=== PATIENT | female | born 1980 | race Caucasian/White ===

== ENCOUNTER 2016-12-01 20:39 | Outpatient (CLI) | payer MEDICAID ==
[~2016-12-01] VITALS: Ht 170.2 cm; Wt 75.8 kg
[~2016-12-01 20:39] MED LIST: HYDR-3498 PO; PRENAT PO
[2016-12-01] MEDS ORDERED: CALC600T5 PO (20:55)
[2016-12-01] MEDS ORDERED: FERR325C PO (20:55)
[2016-12-01] MEDS ORDERED: FOLI0.8C PO (20:55)
[2016-12-01] MEDS ORDERED: PREN1TAB79 PO (20:55)
[2016-12-01 20:56] VITALS: Ht 170.2 cm; Wt 75.8 kg
[2016-12-01 20:57] VITALS: BP 135/77; PULSE 92; RESP 18
--- NOTE | 2016-12-01 23:44 | HP ---
Date/Time of Note Date/Time of Note DATE: 12/01/16 TIME: 23:42 OB - History Hx of Present Free Text/Dictation OB Triage Pt is a 36yo at 38+0 presenting with increasingly painful UCs since 1830. Pt reports normal FM, denies LOF or VB. Pt reports hx of twin gestation with gutierrez gestation diagnosed around 12wks GA. also reportedly complicated by vaginal bleeding up until 4mths with low placenta. Uncomplicated previous , 19 and 12 years ago. PROCEDURE: OB PLACENTAL ULTRASOUND CLINICAL INDICATION: Pre-term labor. TECHNIQUE: Trans-vaginal imaging of the placenta was performed utilizing urena- scale imaging. Sagittal and transverse images were obtained. Trans-abdominal images were also obtained. The images were reviewed on a PACS workstation. COMPARISON: 08/27/2016. 06/12/2016. FINDINGS: There is a single live intrauterine . heart rate is 134 beats per minute. Position is cephalic and placenta is left lateral, grade 2. There is no evidence of placenta previa or abruption. IMPRESSION: 1. Placenta is left lateral, grade 2. No evidence of placenta previa or abruption. Estimated Due Date: Dec 15, 2016 : 5 Para: 2 Care: Good Care Past Family/Social History * Past Medical, Surgical, Family and Obstetric Histories reviewed with patient. chart not available. Blood Type: Unknown Rubella: unknown RPR/VDRL: Unknown GBS Status: Unknown HBsAG: Unknown OB Admission Exam Vital Signs Vital Signs Vital Signs Date Time Temp Pulse Resp B/P Pulse Ox O2 Delivery O2 Flow Rate FiO2 12/01/16 20:57 98.1 92 18 135/77 Room Air Physical Exam HEENT: WNL Heart: Rhythm Normal Lungs: Clear Abdomen: WNL Extremities: Normal Cervical Dilatation: 2cm Effacement: Other (60%) Station: -2 Membranes: Intact Heart Rate: 140's Accelerations: Accelerations Present Decelerations: No Decelerations Varibility: Moderate Contractions on Admission: 6-10 Minutes Apart OB Assessment/Plan Other Assessment: Early term in latent labor Other plan: Pt with unchanged cervical exam over serial exams. Reactive NST. Pt appropriate for d/c home with outpatient f/up or return for worsening UCs, LOF, decreased FM or other concerns. Plan d/w pt. Questions answered to her satisfaction. MILLIE GEORGE MD Dec 01, 2016 23:44
--- NOTE | 2016-12-01 23:44 | RADRPT ---
PROCEDURE: OB PLACENTAL ULTRASOUND CLINICAL INDICATION: Pre-term labor. TECHNIQUE: Trans-vaginal imaging of the placenta was performed utilizing urena-scale imaging. Sagi ttal and transverse images were obtained. Trans-abdominal images were also obtained. The images we re reviewed on a PACS workstation. COMPARISON: 08/27/2016. 06/12/2016. FINDINGS: There is a single live intrauterine . heart rate is 134 beats per minute. Position is cephalic and placenta is left lateral, grade 2. There is no evidence of placenta previa or abrupt ion. IMPRESSION: 1. Placenta is left lateral, grade 2. No evidence of placenta previa or abruption. RPTAT: HFN .Sabra Hickman MD, Date Time Electronically viewed and signed by .Sabra Hickman MD, MD on 12/01/2016 23:44 .N/
--- NOTE | 2016-12-02 06:52 | TRIAGE ---
OB Triage Datetime Report Generated by CPN: 12/02/2016 06:51 Datetime: 12/02/2016 01:58 Stage of : OB Triage Labor Evaluation Frequency: 2-6.5 Monitor Mode: External Duration (sec)2399: 60-120 Quality: Mild Pattern: Normal: <= 5 Contractions in 10 Minutes Resting Tone [place]: Relaxed Heart Rate FHR Baseline Rate: 130 Monitor Mode: External US FHR Baseline Changes: No Baseline Change Variability: Moderate 6-25 bpm Accelerations: 15X15 Decelerations: None Category: Category I Datetime: 12/02/2016 00:31 Stage of : OB Triage Labor Evaluation Frequency: 1.5-6 Monitor Mode: External Duration (sec)2399: 40-110 Quality: Mild Pattern: Normal: <= 5 Contractions in 10 Minutes Resting Tone [place]: Relaxed Heart Rate FHR Baseline Rate: 130 Monitor Mode: External US FHR Baseline Changes: No Baseline Change Variability: Moderate 6-25 bpm Accelerations: 15X15 Decelerations: None Category: Category I Datetime: 12/02/2016 00:00 Stage of : OB Triage Labor Evaluation Frequency: 2-5.5 Monitor Mode: External Duration (sec)2399: 40-140 Quality: Mild Pattern: Normal: <= 5 Contractions in 10 Minutes Resting Tone [place]: Relaxed Heart Rate FHR Baseline Rate: 130 Monitor Mode: External US Variability: Moderate 6-25 bpm Accelerations: 15X15 Decelerations: None Category: Category I Datetime: 12/01/2016 23:20 Stage of : OB Triage Datetime: 12/01/2016 23:18 Vaginal Exam Dilatation (cms): 2.5 Effacement (%): 60 Station: -2 Exam By: MORGAN Galo Vaginal Bleeding: Scant Cervix, Consistency: Moderate Cervix, Position: Posterior Datetime: 12/01/2016 21:30 Stage of : OB Triage Labor Evaluation Frequency: 1.5-7.5 Monitor Mode: External Duration (sec)2399: 40-110 Quality: Mild Pattern: Normal: <= 5 Contractions in 10 Minutes Resting Tone [place]: Relaxed Heart Rate FHR Baseline Rate: 145 Monitor Mode: External US Variability: Moderate 6-25 bpm Accelerations: 15X15 Decelerations: None Category: Category I Datetime: 12/01/2016 21:24 Stage of : OB Triage Datetime: 12/01/2016 21:18 Vaginal Exam Dilatation (cms): 2.0 Effacement (%): 60 Station: -2 Exam By: MORGAN Galo Membrane Status: Intact Vaginal Bleeding: None Cervix, Consistency: Moderate Cervix, Position: Posterior Datetime: 12/01/2016 20:51 EGA: 38.0 Datetime: 12/01/2016 20:47 Stage of : OB Triage Assessment Type: Triage Maternal Assessment Level of Consciousness: Fully Conscious DTR's/Clonus: DTRs 2+; No Clonus Headache: Denies Blurred Vision: No Respiratory Effort: Unlabored; Regular Rhythm; Equal Expansion Breath Sounds, Left: Clear and Equal Breath Sounds, Right: Clear and Equal Nausea/Vomiting: Denies RUQ Epigastric Pain: Denies Lower Extremities Edema: None Degree: None Upper Extremities Edema: None Degree: None Facial Edema: None Temperature Route: Oral Fall Risk Assessment History of Falling: (0) No Secondary Diagnosis: (0) No Ambulatory Aid: (0) Bedrest/Nurse Assist IV Therapy: (0) No Gait: (0) Normal/Bedrest/Immobile Mental Status: (0) Oriented to Own Ability Fall Score: 0 Fall Risk Score Definition: No Risk: No action required Pain Assessment Pain Scale: 7 Pain Presence: Intermittent Pain Type: Cramping; Contraction Pain Location: Abdomen; Back Pain Relief Measures: Comfort Measures Datetime: 12/01/2016 20:46 Monitor Mode: External Contraction Comments: [place] applied Heart Rate FHR Baseline Rate: 145 Monitor Mode: External US Comments: EFN applied Datetime: 12/01/2016 20:40 Time of Arrival: 12/01/2016 20:33 Arrived By: Ambulatory Arrived From: Home Chief Complaint: UCs Movement: Present Contractions: Regular Time Contractions Began: 12/01/2016 18:30 Contractions: q6mins Rupture of Membranes: Denies Vaginal Bleeding: None Vaginal Discharge: Present Abdominal Trauma: Not Applicable Patient Complaints: Contractions; Cramping; Back Pain Time Provider Notified: 12/01/2016 21:24 Provider Notified: Isaac Initial Plan: SHARMIN ronquillo
== END 2016-12-02 02:08 | disposition home or self-care (01) ==
LOC: L-D 20:39 → OBT 20:39
PROVIDERS: ATTEND Obstetrics & Gynecology
DX: O60.03 Preterm labor without delivery, third trimester (principal); O09.523 Supervision of elderly multigravida, third trimester; Z3A.38 38 weeks gestation of pregnancy
CPT/HCPCS: 76815; Z7500; G0463

== ENCOUNTER 2016-12-09 10:22 | Inpatient (IN) | payer MEDICAID ==
[~2016-12-09] VITALS: Ht 165.1 cm; Wt 73.6 kg
[~2016-12-09 10:22] MED LIST changes: +CALC600T5 PO; +FERR325C PO; +FOLI0.8C PO; -HYDR-3498 PO; +PREN1TAB79 PO; -PRENAT PO
[2016-12-09] MEDS ORDERED: LACTATED RINGER'S 1,000 ML IV SCH (10:26)
[2016-12-09] MEDS ORDERED: LIDOCAINE 1% (MPF) 30 ML INJ INJ PRN (10:30)
[2016-12-09] MEDS ORDERED: LACTATED RINGER'S 1,000 ML IV PRN (10:30)
[2016-12-09] MEDS ORDERED: OXYTOCIN 30 UNITS/LR 500 ML IV SCH ×2 (10:30)
[2016-12-09] MEDS ORDERED: MISOPROSTOL 200 MCG TAB PR PRN (10:30)
[2016-12-09] MEDS ORDERED: BUTORPHANOL 2 MG INJ IV PRN (10:30)
[2016-12-09] MEDS ORDERED: OXYTOCIN 30 UNITS/LR 500 ML IV PRN (10:30)
[2016-12-09] MEDS ORDERED: IBUPROFEN 600 MG TAB PO PRN (10:30)
[2016-12-09] MEDS ORDERED: METHYLERGONOVINE 0.2 MG INJ IM PRN (10:30)
[2016-12-09] MEDS ORDERED: CARBOPROST 250 MCG INJ IM PRN (10:30)
--- NOTE | 2016-12-09 11:01 | LDN ---
Date/Time of Note Date/Time of Note DATE: 12/09/16 TIME: 10:58 Delivery Summary Normal spontaneous vaginal delivery of a baby girl from [place] position shoulders delivered with no difficulties cord clamped after stopped pulsation, placenta spontaneous expulsion inspected complete blood loss 200 cc no laceration. Weeks of Gestation 39 weeks 4 days Placenta Delivered: Spontaneously Meconium: none Episiotomy: No Laceration repair: None Anesthesia type: None Estimated blood loss: 200 Sponge & Needle done & correct: Yes All needle counts correct: Yes Any foreign bodies felt in the: No Problems: Infant Delivery Information Sex Sex: female Apgars 1 Minute: 9 5 Minute: 9 Suctioning Nose & mouth suctioned at fani: Yes Delee suction performed: No Umbilical Cord Umbilical cord with: 3 Vessels Cord presentations: nuchal cord Cord Blood was obtained: Yes HARVEY HINDS MD Dec 09, 2016 11:01
--- NOTE | 2016-12-09 11:06 | HP ---
Date/Time of Note Date/Time of Note DATE: 12/09/16 TIME: 11:01 OB - History Hx of Present Free Text/Dictation 36 years old female admitted to [facility] at 39 weeks and 1 day gestation in active labor admitting pelvic examination cervical dilatation anterior ring 100% effacement vertex at +2 station patient seventh directly to the delivery room for the delivery Estimated Due Date: Dec 16, 2016 : 5 Para: 2 Spontaneous : 2 Care: Good Care Ultrasounds: Normal mid trimester US Obstetrical Complications: None Medical Complications: None Past Family/Social History * Past Medical, Surgical, Family and Obstetric Histories reviewed from chart. Rubella: immune RPR/VDRL: Negative GBS Status: Negative HBsAG: Negative OB Admission Exam Physical Exam HEENT: WNL Heart: Rhythm Normal Lungs: Clear, Equal Abdomen: WNL Extremities: Normal Reflexes: Normal Cervical Dilatation: 10cm Station: +2 Membranes: Ruptured Amniotic Fluid: Clear Accelerations: Accelerations Present Decelerations: No Decelerations Varibility: Marked Contractions on Admission: < 5 Minutes Apart Intensity: Firm HARVEY HINDS MD Dec 09, 2016 11:06
[2016-12-09 11:08] LABS: ADD SCAN DIFF NO
[2016-12-09 11:12] LABS: BASOPHILS % 0.3 % (0.0-2.0); EOSINOPHILS # 0.1 10^3/ul (0.0-0.5); EOSINOPHILS % 0.7 % (0.0-7.0); HEMATOCRIT 44.5 % (37.0-47.0); HEMOGLOBIN 15.5 g/dl (12.0-16.0); LYMPHOCYTES # 2.1 10^3/ul (0.8-2.9); MEAN CORPUSCULAR HEMOGLOBIN 31.8 pg (29.0-33.0); MEAN CORPUSCULAR HGB CONC 34.8 g/dl (32.0-37.0); MEAN CORPUSCULAR VOLUME 91.4 fl (82.0-101.0); MEAN PLATELET VOLUME 13.5 fl (7.4-10.4); MONOCYTE # 0.9 10^3/ul (0.3-0.9); MONOCYTES % 8.5 % (0.0-11.0); NEUTROPHIL # 7.4 10^3/ul (1.6-7.5); NEUTROPHILS % 69.4 % (39.0-77.0); PLATELET COUNT 140 10^3/UL (140-415); RED BLOOD COUNT 4.87 10^6/ul (4.20-5.40); WHITE BLOOD COUNT 10.7 10^3/ul (4.8-10.8)
--- NOTE | 2016-12-09 11:28 | TRIAGE ---
OB Triage Datetime Report Generated by CPN: 12/09/2016 11:28 Datetime: 12/09/2016 10:29 Stage of : Labor Maternal Assessment Level of Consciousness: Fully Conscious DTR's/Clonus: DTRs 2+; No Clonus Headache: Denies Blurred Vision: No Respiratory Effort: Unlabored Breath Sounds, Left: Clear and Equal Breath Sounds, Right: Clear and Equal Nausea/Vomiting: Denies RUQ Epigastric Pain: Denies Facial Edema: None Labor Evaluation Frequency: 1-2 Monitor Mode: External Duration (sec)2399: 50-60 Quality: Mild Pattern: Normal: <= 5 Contractions in 10 Minutes Resting Tone [place]: Relaxed Heart Rate FHR Baseline Rate: 130 Monitor Mode: External US FHR Baseline Changes: No Baseline Change Variability: Moderate 6-25 bpm Accelerations: 15X15 Decelerations: None Category: Category I Pain Assessment Pain Scale: 10 Pain Presence: Intermittent Pain Type: Contraction Pain Location: Abdomen Pain Goal: 10 Pain Relief Measures: Comfort Measures Vaginal Exam Dilatation (cms): 9.0 Effacement (%): 100 Station: 0 Exam By: GRACIE MORA Membrane Status: Intact Vaginal Bleeding: None Cervix, Consistency: Soft Cervix, Position: Anterior Presentation 'A': Cephalic Datetime: 12/09/2016 10:13 Time of Arrival: 12/09/2016 10:13 EGA: 39.1 Arrived By: Ambulance Arrived From: Home Chief Complaint: R/O LABOR Movement: Present Contractions: Denies/Absent Time Contractions Began: 12/09/2016 08:00 Rupture of Membranes: Denies Vaginal Bleeding: None Vaginal Discharge: Denies Recent Sexual Intercouse: Denies Abdominal Trauma: Not Applicable Patient Complaints: Contractions Time Provider Notified: 12/09/2016 10:15 Provider Notified: LIZET Datetime: 12/02/2016 01:55 Stage of : OB Triage Datetime: 12/02/2016 01:49 Vaginal Exam Dilatation (cms): 2.5 Effacement (%): 60 Station: -2 Exam By: MORGAN Galo Membrane Status: Intact Vaginal Bleeding: Scant Cervix, Consistency: Moderate Cervix, Position: Posterior Presentation 'A': Cephalic Datetime: 12/01/2016 20:51 EGA: 38.0 Membranes Ruptured Date/Time: 12/09/2016 09:10 Membranes Rupture Method: Spontaneous Amniotic Fluid Color: Clear Amniotic Fluid Amount: Moderate Amniotic Fluid Odor: None Datetime: 12/01/2016 20:47 Fall Risk Assessment Fall Score: 0 Fall Risk Score Definition: No Risk: No action required Datetime: 12/01/2016 20:40 Initial Plan: EFM x2, SVE
[2016-12-09 11:50] LABS: PARTIAL THROMBOPLASTIN TIME 22.8 Sec (25.0-35.0); PT RATIO 0.9
[2016-12-09] MEDS: IBUPROFEN 600 MG TAB PO SCH ×2 (12:30→18:23)
[2016-12-09 12:45] LABS: INR 0.9; PROTIME 12.1 Sec (12.2-14.2)
[2016-12-09 13:02] VITALS: Ht 165.1 cm; Wt 73.6 kg
[2016-12-09 13:04] VITALS: BP 124/67; PULSE 85
[2016-12-09] MEDS: OXYTOCIN 30 UNITS/LR 500 ML IV SCH ×2 (13:31→17:31)
[2016-12-09 13:40] VITALS: BP 125/64; PULSE 81; RESP 17
[2016-12-09] MEDS ORDERED: OXYCODONE/ASPIRIN (4.88/325) TAB PO PRN ×2 (14:00)
[2016-12-09] MEDS ORDERED: DIBUCAINE 1% 30 GM OINT PR PRN (14:00)
[2016-12-09] MEDS ORDERED: BENZOCAINE 20% 56 ML SPRAY TOP PRN (14:00)
[2016-12-09] MEDS ORDERED: ONDANSETRON 4 MG INJ IV PRN (14:00)
[2016-12-09] MEDS ORDERED: LANOLIN 7 GM TUBE TOP PRN (14:00)
[2016-12-09] MEDS ORDERED: WITCH HAZEL/GLYCERIN PAD PR PRN (14:00)
[2016-12-09] MEDS ORDERED: ACETAMINOPHEN 325 MG TAB PO PRN (14:00)
[2016-12-09] MEDS ORDERED: ACETAMINOPHEN/CODEINE #3 TAB PO PRN ×2 (14:00)
[2016-12-09 16:30] VITALS: BP 113/61; PULSE 72; RESP 19
[2016-12-09 19:50] VITALS: BP 113/57; PULSE 94; RESP 18
[2016-12-09] MEDS: SENNA/DOCUSATE NA (8.6MG/50MG) TAB PO SCH (21:28)
[2016-12-10] MEDS: IBUPROFEN 600 MG TAB PO SCH ×5 (00:15→23:56)
[2016-12-10 04:15] VITALS: BP 99/57; PULSE 84; RESP 18
[2016-12-10 08:00] VITALS: BP 100/60; PULSE 76; RESP 18
[2016-12-10 08:06] LABS: ADD SCAN DIFF NO
[2016-12-10 08:12] LABS: BASOPHILS % 0.3 % (0.0-2.0); EOSINOPHILS # 0.1 10^3/ul (0.0-0.5); EOSINOPHILS % 0.8 % (0.0-7.0); HEMOGLOBIN 14.1 g/dl (12.0-16.0); LYMPHOCYTES # 1.8 10^3/ul (0.8-2.9); LYMPHOCYTES % 15.3 % (15.0-51.0); MEAN CORPUSCULAR HEMOGLOBIN 31.7 pg (29.0-33.0); MEAN CORPUSCULAR HGB CONC 34.4 g/dl (32.0-37.0); MEAN CORPUSCULAR VOLUME 92.1 fl (82.0-101.0); MEAN PLATELET VOLUME 12.9 fl (7.4-10.4); MONOCYTE # 0.9 10^3/ul (0.3-0.9); MONOCYTES % 7.6 % (0.0-11.0); NEUTROPHILS % 74.4 % (39.0-77.0); PLATELET COUNT 166 10^3/UL (140-415); RED BLOOD COUNT 4.45 10^6/ul (4.20-5.40); WHITE BLOOD COUNT 12.1 10^3/ul (4.8-10.8)
[2016-12-10] MEDS: SENNA/DOCUSATE NA (8.6MG/50MG) TAB PO SCH ×2 (09:18→21:00)
[2016-12-10 15:30] VITALS: BP 110/58; PULSE 68; RESP 18
--- NOTE | 2016-12-10 15:33 | PN ---
Date/Time of Note Date/Time of Note DATE: 12/10/16 TIME: 15:30 OB Subjective Subjective Subjective December 10 2016 OB progress note OB Objective Objective Objective Post day 1 Patient is doing well, Ambulatory She is afebrile Abdomen is soft , Fundus is firm Moderate amount of lochia Breasts are soft, Nipples are intact No calf tenderness. Perineum is healing well. Breast feeding the new born. Laboratory Tests Test 12/10/16 07:49 White Blood Count 12.110^3/ul Red Blood Count 4.4510^6/ul Hemoglobin 14.1g/dl Hematocrit 41.0% Mean Corpuscular Volume 92.1fl Mean Corpuscular Hemoglobin 31.7pg Mean Corpuscular Hemoglobin Concent 34.4g/dl Red Cell Distribution Width 13.0% Platelet Count 58992^3/UL Mean Platelet Volume 12.9fl Neutrophils % 74.4% Lymphocytes % 15.3% Monocytes % 7.6% Eosinophils % 0.8% Basophils % 0.3% Nucleated Red Blood Cells % 0.0/100WBC Neutrophils # 9.010^3/ul Lymphocytes # 1.810^3/ul Monocytes # 0.910^3/ul Eosinophils # 0.110^3/ul Basophils # 0.010^3/ul Nucleated Red Blood Cells # 0.010^3/ul Current Medications Medications (Trade) Dose Ordered Sig/Asad Route PRN Reason Start Time Stop Time Status Last Admin Dose Admin Lactated Ringer's (Lr) 1,000 ml @ 125 mls/hr Q8H IV 12/09/16 10:26 12/09/16 13:34 DC Butorphanol Tartrate (Stadol) 2 mg Q2H PRN IV PAIN 12/09/16 10:30 12/09/16 13:34 DC Lidocaine 30 ml 30 ml ONCE PRN INJ EPISIOTOMY/TEARING 12/09/16 10:30 12/09/16 13:34 DC Oxytocin/Lactated Ringer's 500 ml @ 125 mls/hr ONCE -MAY REPEAT X1 IV 12/09/16 10:30 12/09/16 13:34 DC 12/09/16 11:45 Oxytocin/Lactated Ringer's 500 ml @ 125 mls/hr ONCE IV 12/09/16 10:30 12/09/16 13:34 DC Ibuprofen 600 mg 600 mg ONCE PRN PO Mild Pain (Pain Score 1-3) 12/09/16 10:30 12/09/16 13:34 DC Lactated Ringer's 1,000 ml @ 2,000 mls/hr Q30M PRN IV PRE-EPIDURAL BOLUS 12/09/16 10:30 12/09/16 13:34 DC Oxytocin/Lactated Ringer's 500 ml @ 0 mls/hr ONCE PRN IV For Hemorrhage Management 12/09/16 10:30 12/09/16 13:34 DC Methylergonovine Maleate (Methergine) 0.2 mg ONCE PRN IM VAGINAL BLEEDING 12/09/16 10:30 12/09/16 13:34 DC Carboprost Tromethamine (Hemabate) 250 mcg ONCE PRN IM VAGINAL BLEEDING 12/09/16 10:30 12/09/16 13:34 DC Misoprostol 1000 mcg 1,000 mcg ONCE PRN ND VAGINAL BLEEDING 12/09/16 10:30 12/09/16 13:34 DC Oxytocin/Lactated Ringer's 500 ml @ 125 mls/hr Q4H IV 12/09/16 13:31 12/09/16 21:30 DC Ibuprofen (Motrin) 600 mg Q6 PO 12/09/16 18:00 12/09/16 23:50 DC 12/09/16 12:30 Acetaminophen (Tylenol Tab) 650 mg Q4H PRN PO PAIN LEVEL 1-5 12/09/16 14:00 Acetaminophen/ Codeine Phosphate (Tylenol No.3) 1 tab Q4H PRN PO PAIN LEVEL 1-5 12/09/16 14:00 Acetaminophen/ Codeine Phosphate (Tylenol No.3) 2 tab Q4H PRN PO PAIN LEVEL 6-10 12/09/16 14:00 Oxycodone/Aspirin (Percodan) 1 tab Q3H PRN PO PAIN LEVEL 1-5 12/09/16 14:00 Oxycodone/Aspirin (Percodan) 2 tab Q3H PRN PO PAIN LEVEL 6-10 12/09/16 14:00 Ondansetron HCl (Zofran Inj) 4 mg Q6H PRN IV NAUSEA AND/OR VOMITING 12/09/16 14:00 Senna/Docusate Sodium (Senokot-S) 1 tab BID PO 12/09/16 21:00 12/10/16 09:18 Witch [place]/ Glycerin (Tucks Pads) 1 pad BEDSIDE MEDICATION PRN ND HEMORRHOID/EPISIOTMY PAIN 12/09/16 14:00 12/09/16 18:24 Benzocaine (Dermoplast [place]) 1 spray BEDSIDE MEDICATION PRN TOP HEMORRHOID/EPISIOTMY PAIN 12/09/16 14:00 12/09/16 18:24 Dibucaine (Nupercainal) 1 applic BEDSIDE MEDICATION PRN ND HEMORRHOID/EPISIOTMY PAIN 12/09/16 14:00 Lanolin (Onl-C-Ivgnwg) 1 applic BEDSIDE MEDICATION PRN TOP BEDSIDE FOR AYSHA TO NIPPLES 12/09/16 14:00 12/09/16 18:24 Measles/Mumps/ Rubella Vaccine Live (Mmr Ii Vaccine) 0.5 ml ONCE ONCE SC* 12/11/16 09:00 12/11/16 09:01 Ibuprofen (Motrin) 600 mg Q6 PO 12/10/16 00:00 12/10/16 11:38 Patient is afebrile ambulatory nursing the . Perineum is healing [place] is doing well NARGIS CURRY MD Dec 10, 2016 15:33
[2016-12-10 19:35] VITALS: BP 103/57; PULSE 84; RESP 18
[2016-12-11 04:15] VITALS: BP 100/61; PULSE 86; RESP 18
[2016-12-11] MEDS: IBUPROFEN 600 MG TAB PO SCH ×3 (06:12→17:42)
[2016-12-11 08:00] VITALS: BP 111/62; PULSE 75; RESP 18
[2016-12-11] MEDS ORDERED: MEASLES,MUMPS,RUBELLA VACCINE INJ SC* ONE (09:00)
[2016-12-11] MEDS: SENNA/DOCUSATE NA (8.6MG/50MG) TAB PO SCH (09:00)
--- NOTE | 2016-12-11 09:41 | PD.PPDC ---
[employer] Discharge Instruction Condition Patient Condition: Good Diet Diet: Resume Regular Diet Activity/Restrictions Activity: Normal Activity May Shower Follow-up Follow-up with Physician: 2, Week/Weeks Return to clinic for NITROGLYCERIN NEUTRALIZER Instructions: Fever greater than 101 Worsening abdominal pain More than 2 pads per hour OB Instructions: Breast Tenderness Blurried Vision Headache HARVEY HINDS MD Dec 11, 2016 09:41
--- NOTE | 2016-12-11 09:45 | DS ---
Date/Time of Note Date/Time of Note DATE: 12/11/16 TIME: 09:43 Discharge Summary Admission/Discharge Info Admit Date/Time Dec 09, 2016 at 10:23 Discharge Date/Time 12/11/16 0945 Final Diagnosis Term normal vaginal delivery Patient Condition: Good Procedures Normal vaginal delivery Hx of Present Illness Term Hospital Course Uneventful Home Meds Reported Medications Calcium Carbonate (CALCIUM) 600 Mg Tablet, 600 MG PO DAILY, TAB 12/01/16 Folic Acid (Folic Acid) 0.8 Mg Capsule, 0.8 MG PO DAILY, CAP 12/01/16 Ferrous Sulfate (Iron) 325 Mg Capsule.er, 325 MG PO DAILY, CAP 12/01/16 Vit W-Ca,Fe,FA(<1 mg) ( Vitamins) 1 Each Tablet, 1 EACH PO DAILY, TAB 12/01/16 HARVEY HINDS MD Dec 11, 2016 09:45
[2016-12-11 16:00] VITALS: BP 111/60; PULSE 89; RESP 18
== END 2016-12-11 18:44 | disposition home or self-care (01) | DRG 775 ==
LOC: OBT 10:22 → L-D 10:23 → PP1 13:30
PROVIDERS: ADMIT Obstetrics & Gynecology; ATTEND Obstetrics & Gynecology
PROC: 10E0XZZ Delivery of Products of Conception, External Approach (ICD-10-PCS; principal; 2016-12-09)
DX: O69.81X0 Labor and delivery complicated by cord around neck, without compression, not applicable or unspecified (principal); Z37.0 Single live birth; Z3A.39 39 weeks gestation of pregnancy
CPT/HCPCS: 85025; 85610; 85730; 86592; 86900; 86901; 87340; G0463; J2590; J7120